=== PATIENT | male | born 1955 | race Two or more races ===

== ENCOUNTER → 2024-06-08 12:22 | Outpatient (REF) | payer OTHER, SELFPAY ==
--- NOTE | 2024-06-08 13:30 | CARDSERVLU ---
Echocardiogram with Lumason completed after protocol screening completed. Allergies verified.
Patent IV site: Rt AC
IV site flushed with 0.9% NaCl pre and post administration.
Diluted bolus method utilized to enhance visualization of ventricular mg.
Total volume given: ___5.0_ mL
Patient tolerated all procedures well without complications.
#22 silvana placed Rt AC. Lumason given. INT d/c'd. dsg applied. pressure held. No bleeding noted.
== END ==
LOC: RCS 12:22
PROVIDERS: ATTENDING PHYSICIAN Internal Medicine; FAMILY PHYSICIAN Nurse Practitioner Adult Health
DX: I77.810 Thoracic aortic ectasia (principal)
CPT/HCPCS: 93306; Q9950